=== PATIENT | male | born 2000 | race Asian ===

== ENCOUNTER 2021-10-26 09:51 | Emergency (ER) | payer OTHER, SELFPAY ==
--- NOTE | 2021-10-26 10:05 | ED.WOUNDLAC ---
HPI - Wound/Laceration General Chief Complaint: Extremity Problem Stated Complaint: L THUMB INJ AT WORK Time Seen by Provider: 10/26/21 09:54 Source: patient Mode of arrival: ambulatory Limitations: no limitations History of Present Illness HPI narrative: 21-year-old male who is healthy here with left thumb injury which occurred while working. Patient tells me he was opening up a new razor blade package and the razor cut his left thumb causing a laceration. Patient reports full range of motion of the thumb. No numbness, tingling, weakness. Review of Systems Review of Systems: Yes all other systems are reviewed and are negative Constitutional: Constitutional: Reports no additional constitutional complaints, Denies fever(s) and Denies weakness Musculoskeletal: Musculoskeletal: Reports no additional musculoskeletal complaints, Denies arthralgias, Denies joint swelling, Denies numbness and Denies tingling Integumentary/Breasts: Skin/Breast: Reports system reviewed and no additional complaints, except as docu and Denies rash Comments: +lac Neurologic: Reports system reviewed and no additional complaints, except as documented, Denies numbness, Denies tingling and Denies weakness [facility] Past Medical History Attestation statement: The following information was validated with the patient. Source: old records reviewed and nursing notes reviewed Social History Social History Advance Directives: No Advance Directives Information Provided: No Physical Exam Vital Signs: Vital Signs: Last Vital Signs Temp 98.2 F 10/26/21 10:09 Pulse 90 10/26/21 10:09 Resp 18 10/26/21 10:09 BP 118/87 10/26/21 10:09 Pulse Ox 99 10/26/21 10:09 BMI result Body Mass Index 35.4 Const: General: cooperative, healthy appearing, comfortable and no acute distress Orientation/consciousness: patient oriented x3 Limitations: no limitations HEENT: Head: Yes normal to inspection Ears: hearing grossly normal bilaterally Eyes: General: appearance normal, both eyes and all related structures Neck: Neck: Yes normal visual inspection Chest: Chest palpation & inspection: normal inspection of the chest Resp: Effort & Inspection: normal respiratory effort Cardio: Peripheral pulses: Peripheral pulses 2+ throughout Skin: General skin exam: no rashes or lesions noted Neuro: General: patient oriented x3, moves all extremities and normal sensation to monofilament Cognition (Neuro): normal cognition Gait exam (Neuro): Normal gait present Extrem: General: Yes normal to inspection Hand/finger images: 1. Avulsion- active bleeding- full range of motion of digit- nail is intact Course Course Course Narrative: Bleeding controlled with Surgicel and direct pressure with observation for 30 minutes. MDM - Wound/Laceration MDM Narrative Medical decision making narrative: 21-year-old male here with a skin avulsion to the left thumb which occurred while working. There is some active bleeding on site. Will perform wound care. Patient does not need tetanus. Differential Diagnosis Differential diagnosis: Likely avulsion of skin Medical Records Attestation: I reviewed the patient's medical records. Lab Data Attestation: I reviewed the patient's lab results. Discharge Plan Discharge Clinical Impression: Avulsion of skin Patient Disposition: Home, Self-Care Instructions: Skin Tear (ED) Stand Alone Forms: Work/School Release Interventions: ED Discharge Assessment Last Done: 10/26/21 10:13 Discharge Date/Time: 10/26/21 10:32
[2021-10-26 10:09] VITALS: BP 118/87; PULSE 90; RESP 18; TEMP 36.8; O2SAT 99; BMI 35.4
== END 2021-10-26 10:32 | disposition home or self-care (01) ==
PROVIDERS: Emergency Provider Emergency Medicine
DX: S61.012A Laceration without foreign body of left thumb without damage to nail, initial encounter (principal); W27.8XXA Contact with other nonpowered hand tool, initial encounter; Y93.89 Activity, other specified; Y92.239 Unspecified place in hospital as the place of occurrence of the external cause; Y99.0 Civilian activity done for income or pay
CPT/HCPCS: 12001; 99282; 99283

== ENCOUNTER → 2021-10-28 10:38 | Outpatient (BNVA) | payer OTHER, SELFPAY | PROVIDERS: Visit Provider Physician Assistant Medical | DX: Z13.89 Encounter for screening for other disorder (principal) | CPT/HCPCS: 99203 ==

== ENCOUNTER → 2021-11-04 08:02 | Outpatient (BNVA) | payer OTHER, SELFPAY | PROVIDERS: Visit Provider Physician Assistant Medical | DX: Z13.89 Encounter for screening for other disorder (principal) | CPT/HCPCS: 99213 ==

== ENCOUNTER 2022-02-16 06:37 | Outpatient (REF) | payer OTHER, SELFPAY ==
[2022-02-16 07:01] LABS: COVID-19 Test Negative (Negative); IDNOW Serial# BCCEAD1C
== END 2022-02-16 06:38 | disposition home or self-care (01) ==
LOC: HO.LAB 06:37
PROVIDERS: Visit Provider Internal Medicine
DX: Z20.822 Contact with and (suspected) exposure to COVID-19 (principal)
CPT/HCPCS: 87635

== ENCOUNTER 2022-03-15 06:34 | Outpatient (REF) | payer OTHER, SELFPAY ==
[2022-03-15 07:14] LABS: COVID-19 Test Negative (Negative)
== END 2022-03-15 06:35 | disposition home or self-care (01) ==
LOC: HO.LAB 06:34
PROVIDERS: Visit Provider Internal Medicine
DX: Z20.822 Contact with and (suspected) exposure to COVID-19 (principal)
CPT/HCPCS: 87635

== ENCOUNTER 2024-05-10 02:26 | Emergency (ER) | payer OTHER, SELFPAY ==
--- NOTE | ~2024-05-10 | US_ITS ---
CLINICAL HISTORY: limited to RUQ r o gallstones US abdomen limited Comparison: CT/SR - CT ABDOMEN PELVIS W IV CON - 05/10/24 05:15 EST Findings: The visualized pancreas is normal. The aorta and inferior vena cava are normal caliber. The liver is normal in echotexture. There is no intrahepatic bile duct dilatation. The common duct is 3 mm in diameter. The gallbladder is normal. There is no sonographic Carter sign. The main portal vein is antegrade. No ascites. IMPRESSION: 1. Unremarkable appearance of the gallbladder. This document has been electronically signed by: Aruna Livingston MD on 05/10/2024 06:19:22
--- NOTE | ~2024-05-10 | CT_ITS ---
CLINICAL HISTORY: RUQ pain numbness, N V D R O biliary disease CT abdomen and pelvis with contrast Comparison: CT - CT ABDOMEN PELVIS W IV CON - 05/10/24 05:12 EST Findings: The lung bases are clear. Unremarkable gallbladder and solid organs. No urolithiasis. The bowel is nondilated and noninflamed. There is fluid throughout the colon often seen in the setting of diarrheal illness. Pelvic contents unremarkable. Normal appendix. The bones are intact. IMPRESSION: Fluid throughout the colon often seen in the setting of diarrheal illness. No evidence of bowel obstruction, obstructive uropathy or biliary obstruction. This document has been electronically signed by: Aruna Livingston MD on 05/10/2024 06:23:42
[2024-05-10 02:34] VITALS: BP 117/70; PULSE 114; RESP 20; TEMP 36.6; O2SAT 98; BMI 32.5
[2024-05-10 02:41] LABS: MANUAL DIFF FLAG NO
[2024-05-10 02:42] LABS: Basophils Percent Auto 0.3 % (0-2); Eosinophils Percent Auto 0.3 % (0-4); Hematocrit 49.3 % (42.0-52.0); Hemoglobin 16.9 g/dl (14.0-18.0); Imm Gran Abs Auto 0.03 X10*3/uL (0.00-0.03); Imm Gran Pct Auto 0.3 % (0.0-0.4); Lymphocytes Absolute Auto 0.5 X10*3/uL (1.2-4.9); Lymphocytes Percent Auto 4.4 % (20-40); Mean Corpuscular HGB Conc 34.3 g/dl (31.0-36.0); Mean Corpuscular Hemoglobin 28.5 pg (27.0-33.0); Mean Corpuscular Volume 83.1 fL (80.0-98.0); Mean Platelet Volume 8.8 fL (9.4-12.4); Monocytes Absolute Auto 0.7 X10*3/uL (0.1-1.2); Monocytes Percent Auto 5.8 % (2-11); Neutrophils Absolute Auto 10.5 x10*3/uL (2.0-8.3); Neutrophils Percent Auto 88.9 % (45-73); Platelet Count 249 X10*3/uL (160-400); Red Blood Count 5.93 X10*6/uL (4.60-5.80); Red Cell Distribution Width 12.7 % (11.0-16.0); White Blood Count 11.9 X10*3/uL (4.8-10.8)
[2024-05-10 03:06] LABS: Alanine Aminotransferase 22 U/L (0-40); Albumin Level 4.9 g/dL (3.5-5.0); Alkaline Phosphatase 59 U/L (39-117); Anion Gap 17 (12-20); Aspartate Amino Transferase 24 U/L (5-37); Bilirubin Direct 0.1 mg/dL (0.0-0.5); Bilirubin Total 0.6 mg/dL (0.0-1.0); Blood Urea Nitrogen 24 mg/dL (9-16); Calcium 9.7 mg/dL (8.4-10.2); Carbon Dioxide 18 mmol/L (22-29); Chloride 109 mmol/L (96-108); Creatinine Clr Calc Pharmacy 110.5; Estimated Glomerular Filt Rate > 60; Glucose Random 135 mg/dL (60-115); Potassium 4.5 mmol/L (3.3-5.1); Sodium 139 mmol/L (135-145); Total Protein 9.1 g/dL (6.5-8.0)
[2024-05-10 03:14] LABS: Appearance Urine Clear; Color Urine Yellow; Glucose Urine UA Negative (Negative); Leukocyte Esterase Urine Negative (Negative); Nitrite Urine Negative (Negative); PH 5.5 (5.0-9.0); Specific Gravity - Urine >= 1.030 (1.005-1.025); UMIC TRIGGER UACC YES; Urine Blood Trace (Negative); Urine Ketones 15 mg/dL (Negative); Urine Protein 30 (1+) mg/dL (Neg-Trace)
[2024-05-10 03:18] LABS: Influenza A PCR NEGATIVE (Negative); Influenza B PCR NEGATIVE (Negative); Resp Syncy Virus RNA Qual PCR NEGATIVE (Negative); SARS COV2 PCR INHOUSE NEGATIVE (Negative)
[2024-05-10 03:21] LABS: Bacteria Urine None Seen (None Seen); RBC Urine 0-2 /HPF (0-2); Squamous Epithelial Cell Urine 0-2 /HPF (0-2); WBC Urine 0-5 /HPF (0-5)
--- NOTE | 2024-05-10 05:05 | ED.ABDPAIN ---
HPI - Abdominal Pain General Chief Complaint: Abdominal Pain Stated Complaint: abd pain Time Seen by Provider: 05/10/24 04:49 Source: patient Mode of arrival: ambulatory Limitations: no limitations History of Present Illness ED Provider: Dr. Bryant Sharma HPI narrative: 23-year-old male with no significant past medical history who presents emergency department for evaluation of right upper quadrant pain and numbness x1 week with diffuse abdominal pain, nausea and vomiting with onset prior to coming to emergency department. The patient states that 1 week prior he went skiing but did not have any injury. After skiing he noticed a numbness in his right upper quadrant area. He states that since that time he was had a constant numbness but he was had intermittent pain in his right upper quadrant. He states that symptoms the pain will come on several hours after eating. He states that also sometimes the pain is worse with exertion-yesterday he was exercising and doing pull-ups and this seemed to make the pain worse. The patient states that he was increased his physical activity and has been working with a data integrity specialist in his lost a proximally 25 lb intentionally. He states that prior to coming to the emergency department he developed a diffuse abdominal discomfort, nausea, vomiting and diarrhea. He states he was had several episodes of vomiting and at least 5-6 episodes of diarrhea. He states that prior to coming to the emergency department he felt dizzy and became diaphoretic. 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 Related Data Previous Rx's ?Medication ?Instructions ?Recorded ondansetron 4 mg disintegrating 4 mg PO Q6-8H PRN nausea and 05/10/24 tablet vomiting #14 tabs Allergies Allergy/AdvReac Type Severity Reaction Status Date / Time No Known Allergies Allergy Verified 05/10/24 02:35 Review of Systems Review of Systems Yes all other systems are reviewed and are negative [facility] Social History Social History Smoked in Last 30 Days: No Use of substances other than those prescribed or required for medical reasons: No Advance Directives: No Advance Directives Information Provided: Yes Do you have a plan to hurt others: No Plan Physical Exam ED Vital Signs: Vital Signs - 24 hr 05/10/24 02:34 Temperature 97.9 F Pulse Rate 114 H Respiratory Rate 20 Blood Pressure 117/70 Pulse Oximetry 98 Oxygen Delivery Method Room Air BMI result Body Mass Index 32.5 Vital signs were normal Exam: General: Awake, alert in no distress Head: Normocephalic, atraumatic EENT: PERRL, Lids normal, sclera normal, conjunctiva normal, nose normal , ears normal, throat without erythema or exudates Neck: Supple, no adenopathy Lung: breath sounds symmetric, no wheezing, rales or rhonchi Chest: symmetric movement, nontender Heart: regular rate and rhythm, normal S1, S2 no murmurs or rubs Abdomen: soft, mild to moderate diffuse tenderness, mild right upper quadrant tenderness, no Carter sign. There is no change in the color of the skin in the area of his numbness, no lesions noted Back: no vertebral tenderness, no CVAT Extremities: no deformities, moves all extremities symmetrically Neuro: Awake, alert, oriented, normal speech, moves all extremities symmetrically Psych: Pleasant, cooperative Medical Decision Making Medical Decision Making MDM Narrative: 23-year-old male with no significant past medical history presents emergency department for evaluation of 1 week of right upper quadrant numbness which is constant with intermittent right upper quadrant pain sometimes coming on 2 hours after eating and sometimes worse with physical exercise. Pain lasts proximally 15 minutes with no radiation of the pain to his back. Prior to coming to the emergency department he developed a different, diffuse abdominal pain associated with nausea, vomiting, diarrhea, dizziness and diaphoresis. Physical examination did reveal diffuse abdominal tenderness with mild right upper quadrant tenderness with negative Carter sign, there is no lesions or erythema noted over the right upper quadrant area. Differential diagnosis: ?Includes but is not limited to acute cholecystitis, gallstone/biliary colic, shingles, musculoskeletal injury, viral syndrome, COVID-19, influenza, RSV, gastrointestinal virus, anemia, electrolyte abnormalities Course: 06:12 My interpretation patient's laboratory evaluation is as follows: Elevated WBC 01182. Low serum bicarb 18, elevated BUN 24 with a normal creatinine of 1.19, elevated glucose 135. LFTs were normal. COVID-19, influenza and RSV were negative. Urinalysis was negative. Right upper quadrant ultrasound did not reveal any gallstones, no evidence for acute cholecystitis. CT scan of the abdomen pelvis with IV contrast is pending. Patient was treated with normal saline IV x1 L, Toradol 15 mg IV, Zofran 4 mg IV. 07:07 Patient was feeling significantly better after the above treatment. The CT scan of the abdomen pelvis with IV contrast and right upper quadrant ultrasound did not reveal a clear etiology for the patient's pain which is reassuring. I suspect that the patient may have injured a muscle or nerve and this may be causing his right upper quadrant pain. I did discuss the possibility of shingles however patient was been vaccinated against chickenpox and his father does not think that the patient had chickenpox as a child. The patient was nausea, vomiting, diarrhea are consistent with a viral gastroenteritis and I did discuss this with him. He was advised to take Tylenol and ibuprofen for pain or fever. He was given prescription for ondansetron 4 mg ODT every 6-8 hours as needed for nausea and vomiting. He was instructed to take Imodium for diarrhea and he was given a dose of Imodium 4 mg orally here in the emergency department. Patient was given a work note. Admission/Observation Consideration of admission/observation: Escalation of care including admission/observation considered (Yes) Lab Data MDM Lab Attestation statement: I reviewed the patient's lab results. 05/10/24 02:37 05/10/24 02:37 Labs: Lab Results 05/10/24 05/10/24 Range/Units 02:37 02:53 WBC 11.9 H (4.8-10.8) X10*3/uL RBC 5.93 H (4.60-5.80) X10*6/uL Hgb 16.9 (14.0-18.0) g/dl Hct 49.3 (42.0-52.0) % MCV 83.1 (80.0-98.0) fL MCH 28.5 (27.0-33.0) pg MCHC 34.3 (31.0-36.0) g/dl RDW 12.7 (11.0-16.0) % Plt Count 249 (160-400) X10*3/uL MPV 8.8 L (9.4-12.4) fL Immature Gran % (Auto) 0.3 (0.0-0.4) % Neut % (Auto) 88.9 H (45-73) % Lymph % (Auto) 4.4 L (20-40) % [place] % (Auto) 5.8 (2-11) % Eos % (Auto) 0.3 (0-4) % Baso % (Auto) 0.3 (0-2) % Lymph # (Auto) 0.5 L (1.2-4.9) X10*3/uL [place] # (Auto) 0.7 (0.1-1.2) X10*3/uL Eos # (Auto) 0.0 (0.0-0.4) X10*3/uL Baso # (Auto) 0.0 (0.0-0.2) X10*3/uL Abs Immat Gran (auto) 0.03 (0.00-0.03) X10*3/uL Absolute Neuts (auto) 10.5 H (2.0-8.3) x10*3/uL Absolute Nucleated RBC 0.000 (0.0-0.012) X10*3/uL Nucleated RBC % (auto) 0.0 (0.0-0.2) /100WBC Sodium 139 (135-145) mmol/L Potassium 4.5 (3.3-5.1) mmol/L Chloride 109 H (96-108) mmol/L Carbon Dioxide 18 L (22-29) mmol/L Anion Gap 17 (12-20) BUN 24 H (9-16) mg/dL Creatinine 1.19 (0.5-1.4) mg/dL Estim Creat Clear Calc 110.5 Estimated GFR > 60 Random Glucose 135 H (60-115) mg/dL Calcium 9.7 (8.4-10.2) mg/dL Total Bilirubin 0.6 (0.0-1.0) mg/dL Direct Bilirubin 0.1 (0.0-0.5) mg/dL AST 24 (5-37) U/L ALT 22 (0-40) U/L Alkaline Phosphatase 59 (39-117) U/L Total Protein 9.1 H (6.5-8.0) g/dL Albumin 4.9 (3.5-5.0) g/dL Urine Color Yellow Urine Appearance Clear Urine pH 5.5 (5.0-9.0) Ur Specific [place] >= 1.030 H (1.005-1.025) Urine Protein 30 (1+) H (Neg-Trace) mg/dL Urine Glucose (UA) Negative (Negative) mg/dL Urine Ketones 15 (Negative) mg/dL Urine Blood Trace (Negative) Urine Nitrite Negative (Negative) Ur Leukocyte Esterase Negative (Negative) Urine RBC 0-2 (0-2) /HPF Urine WBC 0-5 (0-5) /HPF Ur Squamous Epith Cells 0-2 (0-2) /HPF Urine Bacteria None Seen (None Seen) Hyaline Casts 3-5 (0-2) /LPF Influenza Type A (PCR) NEGATIVE (Negative) Influenza Type B (PCR) NEGATIVE (Negative) RSV RNA Qual (PCR) NEGATIVE (Negative) SARS-CoV-2 RNA (RT-PCR) NEGATIVE (Negative) Radiology Impression Discussion of test interpretation with radiology: I have reviewed the radiologist's reading. Radiologist Impression: [place] [id number] CT Scan Report Signed Patient: Chong Kinsey MR#: [id number] : 2000 CT abdomen and pelvis with contrast Comparison: CT - CT ABDOMEN PELVIS W IV CON - 05/10/24 05:12 EST Findings: The lung bases are clear. Unremarkable gallbladder and solid organs. No urolithiasis. The bowel is nondilated and noninflamed. There is fluid throughout the colon often seen in the setting of diarrheal illness. Pelvic contents unremarkable. Normal appendix. The bones are intact. IMPRESSION: Fluid throughout the colon often seen in the setting of diarrheal illness. No evidence of bowel obstruction, obstructive uropathy or biliary obstruction. This document has been electronically signed by: Aruna Livingston MD on 05/10/2024 06:23:42 US abdomen limited Comparison: CT/SR - CT ABDOMEN PELVIS W IV CON - 05/10/24 05:15 EST Findings: The visualized pancreas is normal. The aorta and inferior vena cava are normal caliber. The liver is normal in echotexture. There is no intrahepatic bile duct dilatation. The common duct is 3 mm in diameter. The gallbladder is normal. There is no sonographic Carter sign. The main portal vein is antegrade. No ascites. IMPRESSION: 1. Unremarkable appearance of the gallbladder. This document has been electronically signed by: Aruna Livingston MD on 05/10/2024 06:19:22 Independent Historian Clinical information obtained from an independent historian. History obtained from or confirmed by: Parent Prescription Management I considered prescription management with: Other (Antiemetic: Zofran ODT) Medications Administered Discontinued Medications Generic Name Dose Route Start Last Admin Trade Name [place] PRN Reason Stop Dose Admin Sodium Chloride 1,000 mls @ 999 mls/hr 05/10/24 05:06 05/10/24 05:12 Ns IV 05/10/24 06:06 999 mls/hr .Q1H1M STA Administration Iohexol 85 ml 05/10/24 05:21 05/10/24 05:21 Iohexol 350 Mg/Ml 100 Ml Infus..Btl IV 05/10/24 05:22 85 ml ONCE ONE Administration Ketorolac Tromethamine 15 mg 05/10/24 05:06 05/10/24 05:42 Ketorolac Tromethamine 15 Mg/Ml Vial IVPUSH 05/10/24 05:07 15 mg ONCE STA Administration Ondansetron HCl 4 mg 05/10/24 05:06 05/10/24 05:42 Ondansetron Hcl 4 Mg/2 Ml Vial IVPUSH 05/10/24 05:07 4 mg ONCE ONE Administration Discharge Plan Discharge Clinical Impression: Abdominal pain, Nausea & vomiting, Diarrhea, Acute viral syndrome Patient Disposition: Home, Self-Care Instructions: Viral Syndrome (ED) Additional Instructions: Your blood work was unremarkable. Your COVID 19, influenza and RSV tests were negative. The CT scan of your abdomen pelvis did not reveal a clear cause for your right upper abdominal pain. The ultrasound of your right upper abdomen did not reveal any gallstones which is reassuring, at this time I do not think that your pain is caused by your gallbladder. It was possible that you may have injured a muscle in your right lower chest/right upper abdomen when your skiing. Your at low risk for getting shingles however if you developed a rash with blisters in the area where your having numbness and pain then you have shingles in you should follow up with your doctor to get started on shingles medicines within 1-2 days of developing the rash. Take ibuprofen 200 mg pills, 2 pills every 6 hours as needed for pain or fever. Take Tylenol (acetaminophen) 500 mg pills, 2 pills every 6 hours as needed for pain or fever. Take Zofran ODT 4 mg pills, 1 pill dissolved in your mouth every 8 hours as needed for nausea and vomiting. For diarrhea I want you to take Imodium 2 mg pills. ?Take 2 pills after the 1st loose, diarrheal stool then 1 pill after each loose, diarrheal stool up to 8 pills per day. ?This usually stops diarrhea within 24 hours. For the next 24 hours, stay on a DAVIDE diet (bananas, rice, applesauce, tea and toast). Follow-up with your doctor in 2 days. Please return to the emergency department if your symptoms get worse or if you develop any symptoms that are concerning to you. Call or text me if you are feeling worse or if you have any questions Prescriptions: New ondansetron 4 mg tablet,disintegrating 4 mg PO Q6-8H PRN (Reason: nausea and vomiting) Qty: 14 0RF Stand Alone Forms: Work/School Release Print Language: [place]
[2024-05-10] MEDS: 0.9 % Sodium Chloride 1,000 ML 999 ML IV (05:12)
[2024-05-10] MEDS: iohexoL 350 MG/ML 100 ML INFUS..BTL 85 ML IV (05:21)
[2024-05-10] MEDS: Ketorolac Tromethamine 15 MG/ML VIAL IVPUSH (05:42)
[2024-05-10] MEDS: ondansetron HCL 4 MG/2 ML VIAL IVPUSH (05:42)
[2024-05-10] MEDS: Loperamide HCl 2 MG CAPSULE 4 MG PO (07:06)
[2024-05-10 07:21] VITALS: BP 117/70; PULSE 114; RESP 20; TEMP 36.6; O2SAT 98
== END 2024-05-10 07:26 | disposition home or self-care (01) ==
PROVIDERS: Emergency Provider Emergency Medicine Emergency Medical Services
DX: B34.9 Viral infection, unspecified (principal); R10.11 Right upper quadrant pain; R11.2 Nausea with vomiting, unspecified; R19.7 Diarrhea, unspecified; Z03.818 Encounter for observation for suspected exposure to other biological agents ruled out
CPT/HCPCS: 0241U; 36415; 74177; 76705; 80053; 81001; 82248; 85025; 96374; 96375; 99284; J1885; J2405; Q9967

== ENCOUNTER → 2024-05-10 05:06 | Outpatient (BNV) | payer OTHER, SELFPAY | PROVIDERS: Emergency Provider Emergency Medicine Emergency Medical Services; Visit Provider Radiology Diagnostic Radiology | DX: K52.9 Noninfective gastroenteritis and colitis, unspecified (principal); R10.11 Right upper quadrant pain | CPT/HCPCS: 74177; 76705 ==